=== PATIENT | male | born 1940 | race Caucasian/White ===

== ENCOUNTER 2020-08-27 11:06 | Inpatient (IN) ==
[2020-08-27] MEDS ORDERED: D5% in Water 1,000 ML IVC PRN (15:52)
[2020-08-27] MEDS ORDERED: Dextrose Gel 15 GM/37.5 ML TUBE PO PRN ×2 (15:52)
[2020-08-27] MEDS ORDERED: *HR* Dextrose 50 % in Water (Vial) 50 ML VIAL IVP PRN (15:52)
[2020-08-27] MEDS: Insulin LISPRO 300 UNITS/3 ML VIAL SUBQ SCH ×2 (17:43→20:52)
[2020-08-27] MEDS: Sennosides/Docusate Sodium TABLET PO SCH (20:48)
[2020-08-27] MEDS ORDERED: Insulin DETEMIR 100 UNIT/ML per UNIT SUBQ ONE (21:00)
[2020-08-28 05:17] LABS: Basophils # 0.1 K/mcL (0.0-0.2); Eosinophils # 0.2 K/mcL (0.0-0.6); Eosinophils % 4.4 %; Hematocrit 35.8 % (37.5-50.1); Hemoglobin 11.6 g/dL (12.9-16.9); Immature Granulocytes % 0.4 % (0-4); Lymphocytes # 1.5 K/mcL (0.6-4.6); Lymphocytes % 27.7 %; Mean Corpuscular HGB Conc 32.4 g/dL (31.6-35.5); Mean Corpuscular Hemoglobin 29.1 pg (28.0-33.3); Mean Corpuscular Volume 89.9 fL (83.0-100.0); Mean Platelet Volume 9.9 fL (9.4-12.4); Monocytes # 0.6 K/mcL (0.0-1.3); Monocytes % 11.5 %; Neutrophils # 2.9 K/mcL (1.6-8.9); Platelet Count 205 K/mcL (140-400); Red Blood Count 3.98 M/mcL (4.19-5.50); Red Cell Distribution Width 13.4 % (11.5-14.5); White Blood Count 5.2 K/mcL (4.3-11.1)
[2020-08-28 05:30] LABS: BUN/Creatinine Ratio 22 (6-26); Blood Urea Nitrogen 22 mg/dL (8-23); Calcium 8.5 mg/dL (8.6-10.3); Carbon Dioxide 27 mEq/L (23-29); Chloride 105 mEq/L (98-107); Glucose 142 mg/dL (70-105); Osmolality,Calculated 294 (280-300); Potassium 3.7 mEq/L (3.5-5.1); Sodium 139 mEq/L (136-145); eGFR For African Americans > 60 (> 60); eGFR For Non-African Americans > 60 (> 60)
[2020-08-28] MEDS: amLODIPine 5 MG TABLET PO SCH (09:30)
[2020-08-28] MEDS: *HR* Glimepiride 4 MG TABLET PO SCH (09:30)
[2020-08-28] MEDS: Finasteride 5 MG TABLET PO SCH (09:30)
[2020-08-28] MEDS: Insulin LISPRO 300 UNITS/3 ML VIAL SUBQ SCH ×4 (12:30→21:11)
[2020-08-28] MEDS: Sennosides/Docusate Sodium TABLET PO SCH ×2 (12:33→21:19)
[2020-08-28] MEDS: Insulin DETEMIR 100 UNIT/ML X5UNITS SUBQ SCH ×2 (12:35→21:17)
[2020-08-29] MEDS: Insulin LISPRO 300 UNITS/3 ML VIAL SUBQ SCH ×4 (08:09→20:21)
[2020-08-29] MEDS: *HR* Glimepiride 4 MG TABLET PO SCH (08:33)
[2020-08-29] MEDS: Finasteride 5 MG TABLET PO SCH (08:33)
[2020-08-29] MEDS: amLODIPine 5 MG TABLET PO SCH (08:33)
[2020-08-29] MEDS: Sennosides/Docusate Sodium TABLET PO SCH ×2 (08:33→20:19)
[2020-08-29] MEDS: Insulin DETEMIR 100 UNIT/ML X5UNITS SUBQ SCH ×2 (08:34→20:20)
[2020-08-30] MEDS: Insulin LISPRO 300 UNITS/3 ML VIAL SUBQ SCH ×4 (07:59→20:58)
[2020-08-30] MEDS: Insulin DETEMIR 100 UNIT/ML X5UNITS SUBQ SCH ×2 (08:06→21:00)
[2020-08-30] MEDS: *HR* Glimepiride 4 MG TABLET PO SCH (08:07)
[2020-08-30] MEDS: amLODIPine 5 MG TABLET PO SCH (08:07)
[2020-08-30] MEDS: Finasteride 5 MG TABLET PO SCH (08:07)
[2020-08-30] MEDS: Sennosides/Docusate Sodium TABLET PO SCH (08:07)
[2020-08-31] MEDS: Finasteride 5 MG TABLET PO SCH (08:36)
[2020-08-31] MEDS: amLODIPine 5 MG TABLET PO SCH (08:36)
[2020-08-31] MEDS: *HR* Glimepiride 4 MG TABLET PO SCH (08:37)
[2020-08-31] MEDS: Insulin LISPRO 300 UNITS/3 ML VIAL SUBQ SCH ×4 (08:37→22:06)
[2020-08-31] MEDS: Insulin DETEMIR 100 UNIT/ML X5UNITS SUBQ SCH ×2 (08:48→22:09)
[2020-09-01] MEDS: Insulin LISPRO 300 UNITS/3 ML VIAL SUBQ SCH ×4 (07:59→19:31)
[2020-09-01] MEDS: *HR* Glimepiride 4 MG TABLET PO SCH (08:03)
[2020-09-01] MEDS: amLODIPine 5 MG TABLET PO SCH (08:03)
[2020-09-01] MEDS: Finasteride 5 MG TABLET PO SCH (08:03)
[2020-09-01] MEDS: Insulin DETEMIR 100 UNIT/ML X5UNITS SUBQ SCH ×2 (09:06→20:09)
[2020-09-02] MEDS: Insulin LISPRO 300 UNITS/3 ML VIAL SUBQ SCH ×4 (08:30→20:50)
[2020-09-02] MEDS: *HR* Glimepiride 4 MG TABLET PO SCH (09:02)
[2020-09-02] MEDS: Finasteride 5 MG TABLET PO SCH (09:02)
[2020-09-02] MEDS: amLODIPine 5 MG TABLET PO SCH (09:02)
[2020-09-02] MEDS: Insulin DETEMIR 100 UNIT/ML X5UNITS SUBQ SCH ×2 (09:03→20:49)
[2020-09-03] MEDS: Insulin LISPRO 300 UNITS/3 ML VIAL SUBQ SCH ×4 (07:35→20:00)
[2020-09-03] MEDS: Insulin DETEMIR 100 UNIT/ML X5UNITS SUBQ SCH ×2 (07:35→20:03)
[2020-09-03] MEDS: amLODIPine 5 MG TABLET PO SCH (07:55)
[2020-09-03] MEDS: *HR* Glimepiride 4 MG TABLET PO SCH (07:55)
[2020-09-03] MEDS: Finasteride 5 MG TABLET PO SCH (07:55)
[2020-09-03 08:08] LABS: Basophils # 0.1 K/mcL (0.0-0.2); Basophils % 0.8 %; Eosinophils # 0.3 K/mcL (0.0-0.6); Eosinophils % 5.6 %; Hematocrit 37.6 % (37.5-50.1); Hemoglobin 12.7 g/dL (12.9-16.9); Immature Granulocytes % 0.5 % (0-4); Lymphocytes # 1.4 K/mcL (0.6-4.6); Lymphocytes % 23.9 %; Mean Corpuscular HGB Conc 33.8 g/dL (31.6-35.5); Mean Corpuscular Hemoglobin 29.6 pg (28.0-33.3); Mean Corpuscular Volume 87.6 fL (83.0-100.0); Mean Platelet Volume 9.6 fL (9.4-12.4); Monocytes # 0.5 K/mcL (0.0-1.3); Monocytes % 8.9 %; Neutrophils # 3.6 K/mcL (1.6-8.9); Platelet Count 201 K/mcL (140-400); Red Blood Count 4.29 M/mcL (4.19-5.50); Red Cell Distribution Width 13.4 % (11.5-14.5); Segmented Neutrophils % 60.3 %; White Blood Count 5.9 K/mcL (4.3-11.1)
[2020-09-03 08:17] LABS: BUN/Creatinine Ratio 27 (6-26); Blood Urea Nitrogen 27 mg/dL (8-23); Carbon Dioxide 26 mEq/L (23-29); Chloride 104 mEq/L (98-107); Glucose 88 mg/dL (70-105); Osmolality,Calculated 291 (280-300); Potassium 3.9 mEq/L (3.5-5.1); Sodium 138 mEq/L (136-145); eGFR For African Americans > 60 (> 60); eGFR For Non-African Americans > 60 (> 60)
[2020-09-04] MEDS: Insulin LISPRO 300 UNITS/3 ML VIAL SUBQ SCH ×4 (08:31→21:05)
[2020-09-04] MEDS: amLODIPine 5 MG TABLET PO SCH (08:31)
[2020-09-04] MEDS: Finasteride 5 MG TABLET PO SCH (08:31)
[2020-09-04] MEDS: *HR* Glimepiride 4 MG TABLET PO SCH (08:31)
[2020-09-04] MEDS: Insulin DETEMIR 100 UNIT/ML X5UNITS SUBQ SCH ×2 (08:31→21:03)
[2020-09-05] MEDS: Insulin LISPRO 300 UNITS/3 ML VIAL SUBQ SCH ×4 (07:50→20:33)
[2020-09-05] MEDS: *HR* Glimepiride 4 MG TABLET PO SCH (09:30)
[2020-09-05] MEDS: Insulin DETEMIR 100 UNIT/ML X5UNITS SUBQ SCH ×2 (09:30→20:34)
[2020-09-05] MEDS: amLODIPine 5 MG TABLET PO SCH (09:30)
[2020-09-05] MEDS: Finasteride 5 MG TABLET PO SCH (09:31)
[2020-09-06] MEDS: Insulin LISPRO 300 UNITS/3 ML VIAL SUBQ SCH ×4 (08:16→21:19)
[2020-09-06] MEDS: Finasteride 5 MG TABLET PO SCH (08:17)
[2020-09-06] MEDS: amLODIPine 5 MG TABLET PO SCH (08:17)
[2020-09-06] MEDS: *HR* Glimepiride 4 MG TABLET PO SCH (08:17)
[2020-09-06] MEDS: Insulin DETEMIR 100 UNIT/ML X5UNITS SUBQ SCH ×2 (08:21→21:20)
[2020-09-07] MEDS: Insulin LISPRO 300 UNITS/3 ML VIAL SUBQ SCH ×4 (08:10→19:57)
[2020-09-07] MEDS: *HR* Glimepiride 4 MG TABLET PO SCH (09:26)
[2020-09-07] MEDS: amLODIPine 5 MG TABLET PO SCH (09:26)
[2020-09-07] MEDS: Finasteride 5 MG TABLET PO SCH (09:26)
[2020-09-07] MEDS: Insulin DETEMIR 100 UNIT/ML X5UNITS SUBQ SCH ×2 (09:26→19:56)
[2020-09-08 07:14] LABS: Hematocrit 38.3 % (37.5-50.1); Hemoglobin 12.6 g/dL (12.9-16.9); Mean Corpuscular HGB Conc 32.9 g/dL (31.6-35.5); Mean Corpuscular Hemoglobin 29.5 pg (28.0-33.3); Mean Corpuscular Volume 89.7 fL (83.0-100.0); Mean Platelet Volume 10.2 fL (9.4-12.4); Platelet Count 172 K/mcL (140-400); Red Blood Count 4.27 M/mcL (4.19-5.50); Red Cell Distribution Width 13.4 % (11.5-14.5); White Blood Count 8.6 K/mcL (4.3-11.1)
[2020-09-08 07:37] LABS: Alanine Aminotransferase 10 Units/L (7-52); Albumin 3.1 g/dL (3.5-5.7); Alkaline Phosphatase 50 Units/L (34-104); Aspartate Amino Transferase 11 Units/L (13-39); BUN/Creatinine Ratio 31 (6-26); Bilirubin,Total 0.3 mg/dL (0.3-1.0); Blood Urea Nitrogen 31 mg/dL (8-23); Calcium 9.1 mg/dL (8.6-10.3); Carbon Dioxide 30 mEq/L (23-29); Chloride 102 mEq/L (98-107); Globulin 3.2 g/dL (2.4-3.5); Glucose 83 mg/dL (70-105); Magnesium 1.6 mg/dL (1.6-2.6); Osmolality,Calculated 294 (280-300); Potassium 3.7 mEq/L (3.5-5.1); Sodium 139 mEq/L (136-145); Total Protein 6.3 g/dL (6.4-8.9); eGFR For African Americans > 60 (> 60); eGFR For Non-African Americans > 60 (> 60)
[2020-09-08] MEDS: Insulin LISPRO 300 UNITS/3 ML VIAL SUBQ SCH ×4 (08:07→22:25)
[2020-09-08] MEDS: amLODIPine 5 MG TABLET PO SCH (09:40)
[2020-09-08] MEDS: Finasteride 5 MG TABLET PO SCH (09:40)
[2020-09-08] MEDS: *HR* Glimepiride 4 MG TABLET PO SCH (09:41)
[2020-09-08] MEDS: Insulin DETEMIR 100 UNIT/ML X5UNITS SUBQ SCH ×2 (09:46→22:25)
[2020-09-09] MEDS: Insulin LISPRO 300 UNITS/3 ML VIAL SUBQ SCH ×4 (08:20→21:19)
[2020-09-09] MEDS: amLODIPine 5 MG TABLET PO SCH (09:59)
[2020-09-09] MEDS: Insulin DETEMIR 100 UNIT/ML X5UNITS SUBQ SCH ×2 (09:59→21:18)
[2020-09-09] MEDS: Finasteride 5 MG TABLET PO SCH (09:59)
[2020-09-09] MEDS: *HR* Glimepiride 4 MG TABLET PO SCH ×2 (10:08→10:35)
[2020-09-10 08:32] VITALS: BP 123/73
[2020-09-10] MEDS: Insulin LISPRO 300 UNITS/3 ML VIAL SUBQ SCH (08:37)
[2020-09-10] MEDS: Finasteride 5 MG TABLET PO SCH (08:58)
[2020-09-10] MEDS: amLODIPine 5 MG TABLET PO SCH (08:58)
[2020-09-10] MEDS: *HR* Glimepiride 4 MG TABLET PO SCH (08:58)
[2020-09-10] MEDS: Insulin DETEMIR 100 UNIT/ML X5UNITS SUBQ SCH (08:58)
[2020-09-10] MEDS ORDERED: FLU Vac QV 20-21 (6Month+)/PF 0.5 ML SYRINGE IM ONE (11:07)
== END 2020-09-10 12:29 | disposition home health service (06) | DRG 949 ==
LOC: INPGRE 16:16
PROVIDERS: ADMIT Family Medicine; ATTEND Family Medicine